=== PATIENT | female | born 1960 | race African-American/Black ===

== ENCOUNTER 2016-08-19 17:21 | Emergency (ER) | payer MEDICAID, SELFPAY ==
[2016-08-19] MEDS ORDERED: Benzonatate 100 MG CAP ONE (17:53)
[2016-08-19] MEDS ORDERED: Ketorolac Tromethamine 30 MG/ML VIAL ONE (17:53)
[2016-08-19] MEDS ORDERED: Ondansetron HCl/PF 4 MG/2 ML Vial ONE (17:53)
[2016-08-19] MEDS ORDERED: Diphenoxylate HCl/Atropine Tablet ONE (18:09)
[2016-08-19] MEDS ORDERED: HYDROcodone/Acetaminophen 10/325 mg Tablet ONE (18:09)
[2016-08-19] MEDS ORDERED: Ondansetron ODT 4 MG TAB ONE (18:10)
[2016-08-19] MEDS ORDERED: Naproxen 500 MG TAB ONE (18:10)
[2016-08-19] MEDS ORDERED: Metoclopramide HCl 10 MG TAB ONE (18:10)
== END 2016-08-19 18:30 | disposition home or self-care (01) ==
LOC: MADERS 17:21
DX: J20.9 Acute bronchitis, unspecified (principal); R11.2 Nausea with vomiting, unspecified; I10 Essential (primary) hypertension; J45.909 Unspecified asthma, uncomplicated; F17.210 Nicotine dependence, cigarettes, uncomplicated
CPT/HCPCS: 87430; 99283; J1885; J2270; J2405; Q0162

== ENCOUNTER 2016-11-28 17:44 | Emergency (ER) | payer SELFPAY ==
[~2016-11-28 17:44] MED LIST: Sodium Chloride 0.9% 1,000 ML BAG ONE; Sodium Chloride 0.9% 100 ML BAG ONE
[2016-11-28 18:38] LABS: #Basophils 0.2 thou/uL (0.0-0.2); #Eosinphils 0.9 thou/uL (0.0-0.7); #Lymphocytes 2.3 thou/uL (1.20-3.40); #Monocytes 1.1 thou/uL (0.11-0.59); #Neutrophils 8.5 thou/uL (1.40-6.50); %Basophils 1.7 % (0.0-1.0); %Eosinophils 7.1 % (0.0-10.0); %Monocytes 8.1 % (0.0-10.0); %Neutrophils 65.1 % (42.0-75.0); Hemoglobin 14.4 g/dL (12.0-16.0); Mean Corpuscular HGB CONC 31.9 g/dL (32.0-36.0); Mean Corpuscular Hemoglobin 29.7 pg (27.0-31.0); Mean Corpuscular Volume 93.2 fl (81.0-99.0); Mean Platelet Volume 7.9 fL (7.4-10.4); Platelet Count 263 thou/uL (130-400); Red Blood Cell (RBC) Count 4.84 mill/uL (4.20-5.40)
[2016-11-28 18:49] LABS: ALT (SGPT) 12 U/L (8-55); AST (SGOT) 14 U/L (5-34); Albumin 3.8 g/dL (3.5-5.0); Alkaline Phosphatase 103 U/L (40-150); Anion Gap 14 mmol/L (10-20); BUN (Urea Nitrogen) 16 mg/dL (9.8-20.1); Bilirubin, Total Less than 0.3 mg/dL (0.2-1.2); Calc. Creatinine Clearance 0 mL/min (70-130); Calcium 9.4 mg/dL (7.8-10.44); Carbon Dioxide 23 mmol/L (22-29); Chloride 107 mmol/L (98-107); Estimated GFR-MDRD Greater than 90; Globulin 2.9 g/dL (2.4-3.5); Glucose 107 mg/dL (70-105); Protein, Total 6.7 g/dL (6.0-8.3); Sodium 140 mmol/L (136-145)
--- NOTE | 2016-11-28 18:51 | RAD ---
TWO VIEW CHEST 11/28/16 COMPARISON: 01/19/15 INDICATION: Chest pain. FINDINGS: There is consolidation with effusion at the inferior right hemithorax. Mild patchy left basilar opac ity present. The cardiac silhouette is within normal limits in size. There is mild prominence of pul monary vasculature. IMPRESSION: Evidence of consolidation and pleural fluid at the inferior right hemithorax. Followup to resolution is recommended. Mild patchy left basilar opacity is also present. Code T POS: [facility]
[2016-11-28] MEDS ORDERED: Dexamethasone 10 MG/ML VIAL ONE (20:00)
[2016-11-28] MEDS ORDERED: Ondansetron HCl/PF 4 MG/2 ML Vial ONE (20:00)
[2016-11-28] MEDS ORDERED: Ketorolac Tromethamine 30 MG/ML VIAL ONE (20:00)
[2016-11-28] MEDS ORDERED: methylPREDNISolone Sod Succ/PF 125 MG/2 ML VIAL ONE (20:00)
[2016-11-28] MEDS ORDERED: cefTRIAXone\\ROCEPHIN 2 GM VIAL ONE (20:01)
[2016-11-28] MEDS ORDERED: Azithromycin 500 MG VIAL ONE (20:01)
[2016-11-28 21:13] LABS: Bilirubin Negative (Negative); Blood, Urine Trace (Negative); Clarity Clear (Clear); Glucose, Urine (Dipstick) Negative (Negative); Leukocyte Negative (Negative); Nitrite Negative (Negative); Protein, Urine (Dipstick) Negative (Neg-Trace); Specific Gravity, Urine 1.015 (1.005-1.030)
[2016-11-28 21:17] LABS: Bacteria/HPF Rare-Few HPF (None Seen); RBC/HPF 0-3 HPF (0-3); WBC/HPF 0-3 HPF (0-3)
== END 2016-11-28 20:15 | disposition short-term general hospital (02) ==
LOC: MADERS 17:44
DX: J18.9 Pneumonia, unspecified organism (principal); I25.10 Atherosclerotic heart disease of native coronary artery without angina pectoris; I10 Essential (primary) hypertension; J45.909 Unspecified asthma, uncomplicated; F17.210 Nicotine dependence, cigarettes, uncomplicated
CPT/HCPCS: 36415; 71020; 80053; 81001; 83880; 85025; 87040; 87086; 93005; 94760; 96365; 96368; 96375; J0456; J0696; J1100; J1885; J2405; J2930; J7050

== ENCOUNTER 2017-01-07 06:56 | Emergency (ER) | payer OTHER, SELFPAY ==
[2017-01-07] MEDS ORDERED: Ketorolac Tromethamine 30 MG/ML VIAL ONE (07:11)
--- NOTE | 2017-01-07 07:39 | RAD ---
SINGLE VIEW OF CHEST: Date: 01/07/17 COMPARISON: 11/30/16. HISTORY: Chest pain. FINDINGS: Single view of the chest shows a normal sized cardiomediastinal silhouette. There is an infiltrate i n the right lower lobe with an adjacent small pleural effusion. The cardiomediastinal silhouette is normal in size. IMPRESSION: Right lower lobe pneumonia with a small adjacent pleural effusion. POS: [facility]
[2017-01-07 07:45] LABS: #Basophils 0.1 thou/uL (0.0-0.2); #Eosinphils 0.3 thou/uL (0.0-0.7); #Lymphocytes 2.5 thou/uL (1.20-3.40); #Neutrophils 8.2 thou/uL (1.40-6.50); %Basophils 0.9 % (0.0-1.0); %Eosinophils 2.4 % (0.0-10.0); %Lymphocytes 20.7 % (21.0-51.0); %Monocytes 8.1 % (0.0-10.0); %Neutrophils 67.9 % (42.0-75.0); Hemoglobin 11.6 g/dL (12.0-16.0); Mean Corpuscular HGB CONC 31.1 g/dL (32.0-36.0); Mean Corpuscular Hemoglobin 27.9 pg (27.0-31.0); Mean Corpuscular Volume 89.6 fl (81.0-99.0); Mean Platelet Volume 6.9 fL (7.4-10.4); Platelet Count 381 thou/uL (130-400); RBC Distribution Width 15.3 % (11.5-14.5); Red Blood Cell (RBC) Count 4.16 mill/uL (4.20-5.40)
[2017-01-07] MEDS ORDERED: Ondansetron HCl/PF 4 MG/2 ML Vial ONE (07:45)
[2017-01-07 07:54] LABS: Amphetamine Not Detected (NotDetected); Barbiturates Screen Not Detected (NotDetected); Benzodiazepine Screen Not Detected (NotDetected); Bilirubin Negative (Negative); Blood, Urine Trace (Negative); Clarity Hazy (Clear); Cocaine Metabolite Screen Not Detected (NotDetected); Glucose, Urine (Dipstick) Negative (Negative); Leukocyte Small (Negative); Medtox Control Line Valid? VALID (VALID); Methadone Not Detected (NotDetected); Methamphetamine Not Detected (NotDetected); Nitrite Negative (Negative); Opiate Screen Not Detected (NotDetected); Oxycodone Screen Not Detected (NotDetected); Phencyclidine (PCP) Not Detected (NotDetected); Protein, Urine (Dipstick) 30 mg/dL (Neg-Trace); Specific Gravity, Urine 1.025 (1.005-1.030); THC/Cannabinoid Screen Not Detected (NotDetected); Tricyclic Screen Not Detected (NotDetected)
[2017-01-07 07:55] LABS: Transitional Epithelial 0-3 HPF (0-3); WBC/HPF 21-50 HPF (0-3)
[2017-01-07 07:56] LABS: Bacteria/HPF 2+ HPF (None Seen)
[2017-01-07 07:59] LABS: ALT (SGPT) 10 U/L (8-55); AST (SGOT) 12 U/L (5-34); Albumin 3.5 g/dL (3.5-5.0); Alkaline Phosphatase 107 U/L (40-150); Anion Gap 18 mmol/L (10-20); BUN (Urea Nitrogen) 13 mg/dL (9.8-20.1); Bilirubin, Total Less than 0.3 mg/dL (0.2-1.2); Calc. Creatinine Clearance 0 mL/min (70-130); Calcium 9.6 mg/dL (7.8-10.44); Carbon Dioxide 22 mmol/L (22-29); Chloride 104 mmol/L (98-107); Estimated GFR-MDRD Greater than 90; Globulin 3.1 g/dL (2.4-3.5); Glucose 103 mg/dL (70-105); Lipase 26 U/L (8-78); Potassium 4.1 mmol/L (3.5-5.1); Protein, Total 6.6 g/dL (6.0-8.3); Sodium 140 mmol/L (136-145)
[2017-01-07] MEDS ORDERED: Piperacillin/Tazobactam 3.375 GM VIAL ONE (08:55)
--- NOTE | 2017-01-07 10:03 | CT ---
CTA OF THE CHEST WITH CONTRAST: Date: 01/07/17 COMPARISON: None. HISTORY: Chest pain for a week. TECHNIQUE: Multiple contiguous axial images were obtained in a CTA of the chest with contrast per pulmonary emb olism protocol. 3D oblique MIP reformats and direct coronal reformats were performed. FINDINGS: There is a 4.6 cm mass-like area of consolidation in the right lower lobe. Surrounding atelectasis i s seen. A small to moderate right pleural effusion is seen. There is a ground-glass attenuation nodu le in the left upper lobe measuring approximately 7.0 mm in size. There may be nodularity along the posterior aspect of the right pleura measuring 1.1 cm in thickness. There are enlarged right hilar l ymph nodes measuring up to 2.5 cm in size. Mildly enlarged mediastinal lymph nodes are present. The pulmonary arteries are well opacified without filling defects to suggest pulmonary emboli. The h eart is normal in size without focal abnormality. Stable tiny hypodensities in the liver are too small to definitely characterize, but likely represen t cysts. The bones and chest wall soft tissues are unremarkable. Surgical clips are seen in the righ t axillary region. IMPRESSION: 1. Right lower lobe mass-like area of consolidation. This could represent malignancy or an infectio n or pneumonia. There are enlarged hilar lymph nodes which may be secondary to malignancy or reactiv e secondary to an infectious process. 2. Complex right pleural effusion with possible nodularity along the posterior aspect of the pleura l effusion. 3. Left upper lobe pulmonary nodule. 4. Hepatic hypodensities likely represent cysts. 5. No evidence of pulmonary thromboembolism. POS: [facility]
[2017-01-07] MEDS ORDERED: Sodium Chloride 0.9% 1,000 ML BAG ONE (10:49)
[2017-01-07] MEDS ORDERED: Sodium Chloride 0.9% 100 ML BAG ONE ×2 (10:49→10:55)
[2017-01-07] MEDS ORDERED: Iopamidol 370 76% 125 ML VIAL FS ONE (10:55)
== END 2017-01-07 09:27 | disposition short-term general hospital (02) ==
LOC: MADERS 06:56
DX: R10.11 Right upper quadrant pain (principal); I25.10 Atherosclerotic heart disease of native coronary artery without angina pectoris; I10 Essential (primary) hypertension; J45.909 Unspecified asthma, uncomplicated; F17.210 Nicotine dependence, cigarettes, uncomplicated; Z79.899 Other long term (current) drug therapy
CPT/HCPCS: 36415; 71020; 71275; 80053; 80306; 81003; 81015; 83690; 85025; 85379; 87040; 87086; 96361; 96365; 96368; 96375; J1170; J1885; J2405; J2543; J3370; J7050